=== PATIENT | male | born 1965 | race Caucasian/White ===

== ENCOUNTER → 2016-11-02 | Day surgery (SDC) | payer OTHER ==
[~2016-11-02] VITALS: Ht 190.5 cm; Wt 132.0 kg
[2016-11-02] VITALS (15 sets, daily range): BP systolic 110–156; BP diastolic 55–107; PULSE 54–69; RESP 10–20; O2SAT 96–98
[~2016-11-02] MED LIST: 0.9% Sodium Chloride 1,000 ML IV SCH; 0.9% Sodium Chloride 1,000 ML ONE; ATOR20TA PO; FLEC100T2 PO; GLIM2TAB PO; HYDR25TA4 PO; HYDROcodone-APAP 5-325 mg Tablet PO PRN; Heparin 1,000 Unit/mL 10 mL Inj ONE; Heparin 10,000 Unit/1,000 mL NS Premix IV ONE; LOSA100T3 PO; Ondansetron 2 mg/mL 2 mL Inj IVPUSH PRN; TOP100 PO; Vancomycin Inj 1,000 MG in IV Premix 1 EACH IV SCH; WARF5TAB7 PO; fentaNYL-PF 50 mCg/mL 2 mL Inj ONE
--- NOTE | 2016-11-02 06:30 | NUR ---
ADMISSION NOTE MALE PT ADMITTED FOR ABLATION. DISCUSSED PLAN OF CARE WITH PT AND FAMILY. SEE ADMIT AND FLOW SHEET
[2016-11-02 07:07] LABS: BASOPHILS % (AUTO) 0.8 % (0-3); EOSINOPHILS % (AUTO) 3.7 % (0-5); MONOCYTES % (AUTO) 11.3 % (4-12); Mean Corpuscular Hemoglobin 35.2 pg (27.0-35.0); Mean Corpuscular Volume 106.1 fL (81-100); NEUTROPHILS % (AUTO) 48.7 % (40-74); Platelet Count 136 bil/L (150-400)
[2016-11-02 07:41] LABS: INR 1.15 ratio
--- NOTE | 2016-11-02 10:41 | NUR ---
POST PROCEDURE NOTE RETURNED FROM [facility]ER[facility]IGATION [facility]. SEE FLOW SHEET
--- NOTE | 2016-11-02 11:25 | PROCED ---
[address] [address] PROCEDURE NOTE PATIENT: MATT JUNG : 1965 MR#: [id number] ADMIT: 11/02/2016 JOB ID: [id number] DATE OF SERVICE: 11/02/2016 PREOPERATIVE DIAGNOSIS(ES): Paroxysmal atrial flutter. POSTOPERATIVE DIAGNOSIS(ES): Paroxysmal atrial flutter. PROCEDURES PERFORMED: 1. Comprehensive electrophysiology study with left atrial pacing recording. 2. Three-dimensional electroanatomic mapping using the CARTO-3 system. 3. Atrial flutter ablation (cavotricuspid isthmus ablation; supraventricular tachycardia ablation). 4. Fluoroscopy. SURGEON: Mele Cannon M.D., electrophysiology attending. ASSISTANTS: 1. Elzbieta Ryan. 2. Harry Mon. ANESTHESIA: Bolus dosing of Versed and fentanyl were utilized to appropriate level of sedation. INDICATION: The patient is a pleasant 50-year-old man with preserved LV function paroxysmal atrial fibrillation organizing to flutter on flecainide. He has had recurrent flutter and after discussion of risks and benefits of catheter based mapping and ablation, he opted to proceed. PROCEDURE DESCRIPTION: Following informed consent, the patient was taken to the EP laboratory in a fasting state. The patient was prepped and draped in the usual sterile fashion. The right inguinal region was infiltrated with 1% lidocaine. Then, using modified Seldinger technique, one 8 and two 7-Hungarian sheaths were inserted into right femoral vein. Under fluoroscopic guidance, a deflectable decapolar catheter was advanced to the coronary sinus with the most proximal bipoles at the os of the sinus. A 20 pole isthmus catheter was used to encircle the tricuspid anulus. The patient was in sinus rhythm at the onset of the case. A J-curve irrigated ablation catheter was brought to the field three-dimensional anatomic map of the right atrium, tricuspid anulus, and cavotricuspid isthmus. The patient was undertaken for the coronary sinus to os while monitoring atrial activation pattern on the isthmus catheter. A linear series of ablations was performed from the ventricular to the IVC aspect of the cavotricuspid isthmus. Ultimately leading to a shift in the atrial activation pattern showing medial to lateral block, lateral to medial block was confirmed. A 30 minute waiting period was undertaken during which bidirectional block was confirmed. In the course of this study, we did complete a comprehensive electrophysiology study with right atrial pacing . His bundle recording, the patient was assessed catheter. All catheter sheaths removed. monitored bed . COMPLICATIONS: None. BLOOD LOSS: Negligible. FINDINGS: 1. Baseline rhythm is sinus with an RR interval of 973 msec, a LA 192 msec, QRS 97 msec, QT 519 msec. 2. Intracardiac intervals: AH interval 114 msec, HV 48 msec no VA conduction. 3. Cavotricuspid isthmus ablation as described above with bidirectional block. Specifically trans isthmus time is 174 msec and lateral to medial direction and 187 msec in the medial to lateral direction. IMPRESSION: Successful cavotricuspid isthmus ablation for typical atrial flutter. PLAN: 1. Four hours bedrest. 2. Change anticoagulation to Eliquis 5 mg p.o. b.i.d. for better compliance. 3. Reduce flecainide 50 mg twice daily given prolonged QT interval. 4. Follow up with Gurpreet Galicia in clinic in four weeks and with Dr. Del Rio thereafter. ATTENDING STATEMENT: Mele Cannon M.D., electrophysiology attending, I was present for and supervised/performed all aspects of this procedure.
--- NOTE | 2016-11-02 15:30 | NUR ---
DISCHARGE NOTE UP IN ROOM. TOLERATED WELL. INSTRUCTIONS GIVEN. HOME
== END | disposition home or self-care (01) ==
LOC: SOUO 00:03
PROVIDERS: ATTEND Internal Medicine Cardiovascular Disease
DX: I48.3 Typical atrial flutter (principal); G47.33 Obstructive sleep apnea (adult) (pediatric); I10 Essential (primary) hypertension; E78.5 Hyperlipidemia, unspecified; E11.9 Type 2 diabetes mellitus without complications; I48.0 Paroxysmal atrial fibrillation; E66.9 Obesity, unspecified; Z68.39 Body mass index [BMI] 39.0-39.9, adult; Z87.891 Personal history of nicotine dependence; Z79.01 Long term (current) use of anticoagulants; Z79.899 Other long term (current) drug therapy
CPT/HCPCS: 36415; 80048; 85025; 85610; 93005; 93613; 93621; 93653; 99152; 99153; C1730; C1731; C1732; C1893; J0131; J1644; J2250; J3010; J7030